=== PATIENT | female | born 1940 | race Caucasian/White ===

== ENCOUNTER → 2017-09-29 12:19 | Outpatient (CLI) | payer MEDICARE, OTHER, SELFPAY ==
--- NOTE | 2017-09-29 12:25 | BI_ITS ---
MAMMOGRAPHY - BILATERAL SCREENING REASON FOR EXAM: Female, 77 years old. Routine annual screening examination. PERTINENT HISTORY: Mother with breast cancer. Remote right excisional breast biopsy. TECHNIQUE: Digital bilateral breast shelli (3D mammographic acquisition) in the CC and MLO projections. 2-D mediolateral oblique (MLO) and craniocaudad (CC) views of both breasts were obtained. CAD: Full Field Digital Mammography with Computer Added Detection was performed. COMPARISON: Comparison is made with prior study dated August 31, 2015 and August 29, 2014. FINDINGS: Breast Composition: There are scattered areas of fibroglandular density. There are no dominant masses or suspicious calcifications. Stable vascular calcifications in the mid aspect of the right breast. No other significant abnormalities are identified. There has been no significant change since the prior study. BI/SCREENING MAMM (CAD), BILAT IMPRESSION: Stable bilateral screening mammogram. Yearly follow-up mammogram recommended. (A) ASSESSMENT CATEGORY: BIRADS Category 2: Benign. A letter regarding these results will be sent to the patient by the facility within 30 days. Approximately 10% of breast cancers are not detected by mammography. A normal mammogram should not delay biopsy of a clinically suspicious abnormality. [id number] Electronically Signed: Carlos Ocasio MD at 14:03 EDT Tel [phone], Service support ,
== END ==
PROVIDERS: PCP Family Medicine; Visit Provider Family Medicine
DX: Z12.31 Encounter for screening mammogram for malignant neoplasm of breast (principal)
CPT/HCPCS: 77063; 77067

== ENCOUNTER → 2017-10-27 11:07 | Outpatient (CLI) | payer MEDICARE, OTHER, SELFPAY ==
[2017-10-27 15:53] LABS: ALB/GLOB Ratio 0.8 RATIO (0.9-2.4); AST(SGOT) 20 U/L (15-37); Alanine Aminotransfer ALT/SGPT 24 U/L (13-56); Alkaline Phosphatase 112 U/L (45-117); Anion Gap 8 (5-15); BUN 18 mg/dL (7-18); Calcium,Total 8.6 mg/dL (8.5-10.1); Chloride 104 mmol/L (98-107); Cholesterol 246 mg/dL (200); Creatinine, Serum 0.67 mg/dL (0.55-1.02); EST Glomerular Filtration Rate 91 mL/min (>60); Est Glom Filt Rate - Afr Amer 110 mL/min (>60); Glucose 99 mg/dL (74-106); High Density Lipoprotein 39 mg/dL; Potassium 3.9 mmol/L (3.5-5.1); Sodium Level 141 mmol/L (136-145); Thyroid Stim Hormone (TSH) 0.85 uIU/mL (0.358-3.74); Triglycerides 231 mg/dL; Very Low Density Lipoprotein 46 mg/dL (5-40)
[2017-10-28 08:27] LABS: Vitamin D,25 Hydroxy 16.9 ng/mL (29.95-100.01)
== END ==
PROVIDERS: Family Provider Family Medicine; PCP Family Medicine; Visit Provider Family Medicine
DX: E78.00 Pure hypercholesterolemia, unspecified (principal); M79.1 Myalgia
CPT/HCPCS: 36415; 80053; 80061; 82306; 84443

== ENCOUNTER → 2018-11-18 14:45 | Outpatient (CLI) | payer MEDICARE, OTHER, SELFPAY ==
[2018-11-18 15:35] LABS: Hematocrit 42.3 % (37-47); Hemoglobin 13.7 g/dL (12.0-15.0); Mean Corp Hgb Conc 32.4 g/dL (32-36); Mean Corpuscular Hgb 28.7 pg (27.0-32.0); Mean Corpuscular Volume 88.5 fL (81-99); Mean Platelet Vol. 11.2 fl (6.2-12.0); Platelet Count 265 K/mm3 (150-450); RBC Distribution Width SD 44.9 fl (35.1-43.9); Red Blood Count 4.78 M/mm3 (4.2-5.4); White Blood Count 8.2 K/mm3 (4.4-11.0)
[2018-11-18 15:42] LABS: International Normalized Ratio 0.9; Prothrombin Time (Protime)PT. 12.2 SECONDS (11.7-14.9)
[2018-11-18 16:05] LABS: BUN 19 mg/dL (7-18); BUN/Creat Ratio 22.9 RATIO (10-20); Calcium,Total 9.2 mg/dL (8.5-10.1); Chloride 107 mmol/L (98-107); Creatinine, Serum 0.83 mg/dL (0.55-1.02); EST Glomerular Filtration Rate 71 mL/min (>60); Est Glom Filt Rate - Afr Amer 85 mL/min (>60); Glucose 120 mg/dL (74-106); Potassium 3.6 mmol/L (3.5-5.1); Sodium Level 139 mmol/L (136-145)
[2018-11-18 16:06] LABS: Anion Gap 6 (5-15)
== END ==
PROVIDERS: Family Provider Family Medicine; PCP Family Medicine; Referring Provider Family Medicine; Visit Provider Family Medicine
DX: Z01.818 Encounter for other preprocedural examination (principal)
CPT/HCPCS: 36415; 80048; 85027; 85610

== ENCOUNTER 2018-11-25 07:12 | Day surgery (SDC) | payer MEDICARE, OTHER, SELFPAY ==
--- NOTE | 2018-11-24 21:02 | PCM.HPOB.BLA ---
- Problem List (1) Postmenopausal bleeding Status: Acute History and Physical Date of Admission: 11/25/18 Magali Flannery, a 78 year old female 5 0 0 0 5, presented for: -- Pre-Op -- Magali is being seen for pre op visit on 11/23/18. Pt to have hysterscopy, d and c on 11-25-18 due to postmenopausal bleeding. ALLERGIES: NKDA MEDICATIONS HISTORY: Patient is also takin. Aspirin Low-Strength 81 mg tablet,chewable 2. atorvastatin 10 mg tablet, 1 PO QD 3. diclofenac potassium 50 mg tablet, 1 PO BID 4. losartan 50 mg tablet, 1 PO QD REVIEW OF SYSTEMS: GENERAL - Denies fever, or chills SKIN - Denies skin changes EYES - Denies visual changes EARS - Denies difficulty hearing NOSE - Denies nasal congestion or bleeding MOUTH - Denies sore throat or difficulty swallowing NECK - Denies pain or swelling RESPIRATORY - Denies shortness of breath or wheezing CARDIOVASCULAR - Denies palpitations or chest pain GASTROINTESTINAL - Denies nausea, vomiting, diarrhea, constipation GENITOURINARY - Denies dysuria, frequency of urination, incontinence of urine MUSCULOSKELETAL - Denies joint or muscle pain NEUROLOGICAL - Denies localized numbness or weakness PSYCHIATRIC - Denies depression or anxiety ENDOCRINE - Denies heat or cold intolerance, weight loss or gain HEMATO-IMMUNOLOGIC - Denies excesive bleeding with cuts SURGICAL HISTORY: 1. 12/05/1978 c section MENSTRUAL HISTORY: LMP Known?- postmenopausal FAMILY HISTORY: Father - Colon Cancer; Mother - Carcinoma of breast; Brother - Neoplasm of lung; SOCIAL HISTORY: Alcohol Use - denies drinking Smoking - denies smoking Diet - balanced Diet Lifestyle - moderate stress lifestyle Exercise - active Seat Belt Use - always Employer - retired Illicit Drug Use - denies use of street drugs Sexual Activity - Spouse-Sig Other Name - Devon Spouse-Sig Other Occupation - retired PHYSICAL EXAMINATION BP- 160/90 Sitting, Right arm, regular cuff Temp- 98.3 Taken Orally Weight- 176.60 lbs Height- 65.50 inch BMI:29.00 CONSTITUTIONAL - NAD, well nourished, and well developed SKIN - No rash, lesions, or ulcers HEENT - normocephalic, atraumatic, sclerae anicteric LUNGS - CTA x2 without wheezes, crackles or rales CARDIAC - Regular rate and rhythm without rubs, murmurs, or gallops ABDOMEN - Without hepatosplenomegaly, distention, masses, rebound, or guarding; normal bowel sounds; no hernias NEUROLOGICAL - normal gait, normal balance, normal motor PSYCHIATRIC - A and O to time, place, person, mood and affect ASSESSMENT: PLAN BY DIAGNOSIS: 1. Postmenopausal Bleeding Plan for hysteroscopy, dilation and curettage - procedure r/b/i/a reviewed. Pt agreeable to proceed with hysteroscopy after further discussion of risks. Prior US 2014 with 20mm cystic endometrium Consents signed and reviewed Pt given opportunity to ask questions and questions answered to her satisfaction. Cryoprecipitate is acceptable, NO WHOLE BLOOD OR PRBC OR FFP. NPO @ [facility] prior to procedure Preop labs reviewed and wnl
[2018-11-25 07:32] VITALS: BP 116/57; PULSE 71; RESP 16; TEMP 36.8; O2SAT 99; BMI 28.2
--- NOTE | 2018-11-25 08:55 | EMB_PTH ---
PATIENT: ADALGISA UPTON LOC: [facility] U#:[id number] AGE/SX: 78/F ROOM: RE11/25/[address]: Dr. Sujata Chahal MD : 1940 BED: DIS: 11/25/2018 SPEC #: [id number] RECD: 11/25/18 10:08 STATUS: REGULO SOPHIE #: [id number] JEAN CLAUDE: 11/25/18 08:[address]: Sujata Cordova DEPT: SURGICAL PATHOLOGY RECD BY: Sherif Love ENTERED: 11/25/18 12:21 SP TYPE: ENDOM BX/C OTHR DR: Dr. Glen Farah MD Tissues: Endometrium, NOS Procedures: Surgery Specimen Level IV HEADER OPERATION: Hysteroscopy, D & C, Symphion PRE-OP DIAGNOSIS: Postmenopausal bleeding TISSUE SUBMITTED: Endometrial curettings and polyp MICROSCOPIC DIAGNOSIS Endometrial curettings and polyp: Complex hyperplasia with focal atypia. See comment. SJ:red 11/26/18 COMMENT Focal single cell necrosis is also noted. Higher grade lesion cannot be entirely excluded. Clinical correlation and appropriate follow up are necessary. Please make reference to previous specimen ([id number]) endometrium, biopsy with diagnosis of rare strips of benign superficial endometrium and endocervix, mucus and inflammatory cells and ([id number]) endometrium, biopsy with diagnosis of rare strips of endocervix and endometrium. Case has been reviewed in consultation with Dr. Tadeo who concurs with the above diagnosis. IDC:AM MICROSCOPIC DESCRIPTION Slides are reviewed. GROSS DESCRIPTION Received in fixative is one container labeled with the patient's name and designated endometrial curettings and polyp. The specimen consists of multiple irregular fragments of solano-pink soft tissue mixed with a few blood clots that in aggregate measure 7.5 x 3 x 0.3 cm. The entire specimen is submitted in three cassettes. / WM:red 11/25/18 TC:5 CPT: 89679
--- NOTE | 2018-11-25 09:37 | PCM.OPRPT ---
Problem List (1) Postmenopausal bleeding Status: Acute Report of Operation Date of Procedure: 11/25/18 Pre-Operative Diagnosis: Postmenopausal bleeding Post-Operative Diagnosis: Postmenopausal bleeding, Endometrial polyp Surgery/Procedure Performed:: Hysteroscopic polypectomy and dilation and curettage Description of Surgical Findings:: Large endometrial polyp - approximately 2cm Endometrial calcifications and cloud like lining Type of Anesthesia:: Local MAC Anesthesiologist: David Zambrano Specimen's removed: endometrial curettings and polyp Drains: urine 60cc Estimated Blood Loss (mL): 5 Fluids Replaced: 600 ml Description of Procedure: Patient was taken to the operating room assignment was performed. She is placed in the dorsal supine position and induced under MAC. She is placed into dorsal lithotomy. The perineum was prepped and draped in sterile fashion. She was repositioned to high lithotomy and a weighted speculum space into the vagina. The cervix was grasped the anterior cervical lip using a single-tooth tenaculum. A paracervical block was placed for a total of 20 cc of 1% lidocaine. The uterus was sounded to 3-1/4 inches. The cervix was subsequently dilated and hysteroscopy performed demonstrating a large endometrial polyp and clublike fluffy lining. There appear to be calcifications. Tubal ostia were visualized with normal cavity shape. Manual resectoscopic polypectomy was performed. Sharp curettage was performed. Hysteroscopy was again performed demonstrating integrity of the uterine cavity. The procedure was complete. The hysteroscope was removed. The tenaculum and speculum were removed. The tenaculum site was hemostatic. The patient was placed in the dorsal supine position, awakened and transferred to the recovery room without complication. Sponge counts were correct x2. Patient tolerated the procedure well. Fluid deficit 500 cc - Complications None - Admit VTE Documentation VTE Present on Admission: No VTE Mechan Device Prophylaxis: SCD's VTE Pharm Prophylaxis ordered?: No
[2018-11-25 09:49] VITALS: BP 116/57; BP 131/69; O2SAT 98
--- NOTE | 2018-11-25 09:52 | DCINST_ITS ---
Discharge Diet: No Restrictions Discharge Activity: Return to Normal Activity, May Shower, - - May drive in 24 hours Call your doctor if you observe: Fever of 101 or Higher, Inability to urinate, Inability to have a bowel movement, Using more than one pad per hour, Shortness of breath, Chest pain, Calf discomfort, Uncontrolled pain Allergies/Adverse Reactions: Allergies No Known Allergies Allergy (Verified 11/22/18 08:47) Medications to take at Discharge Aspirin [Aspir 81] 81 mg PO DAILY 11/22/18 Atorvastatin Calcium [Lipitor] 10 mg PO QHS 11/22/18 Diclofenac [Voltaren] 50 mg PO BIDCM 11/22/18 Losartan Potassium [Cozaar] 50 mg PO DAILY 11/22/18 Omeprazole Magnesium [Prilosec Otc] 20 mg PO DAILY 11/22/18 Primary Care Physician: Nicholas Farah MD [Primary Care Provider] - Test Results: Test results from this visit will be discussed in further detail at your follow- up appointment, if applicable. Please Follow Up With: Sujata Raphael MD When: 1-2 weeks
[2018-11-25 09:55] VITALS: BP 116/57; BP 129/65; PULSE 59; RESP 16; O2SAT 93
[2018-11-25 10:00] VITALS: BP 116/57; BP 143/69; PULSE 58; RESP 16; O2SAT 93
[2018-11-25 10:03] VITALS: BP 116/57; BP 141/60; PULSE 55; RESP 16; TEMP 36; O2SAT 98
[2018-11-25 10:47] VITALS: BP 116/57
== END 2018-11-25 10:49 | disposition home or self-care (01) ==
LOC: SDC 07:14 → AC 07:14
PROVIDERS: Family Provider Family Medicine; PCP Family Medicine; Referring Provider Obstetrics & Gynecology; Visit Provider Obstetrics & Gynecology
PROC: (CPT 58558; principal; 2018-11-25 08:40)
DX: N95.0 Postmenopausal bleeding (principal); N85.01 Benign endometrial hyperplasia; I34.1 Nonrheumatic mitral (valve) prolapse; E78.00 Pure hypercholesterolemia, unspecified; M79.7 Fibromyalgia; K21.9 Gastro-esophageal reflux disease without esophagitis; Z79.82 Long term (current) use of aspirin; Z79.899 Other long term (current) drug therapy
CPT/HCPCS: 58558; 36415; 86850; 86900; 88305; J7120

== ENCOUNTER 2018-12-30 11:46 | Observation (INO) | payer MEDICARE, OTHER, SELFPAY ==
[2018-12-24 11:46] VITALS: BP 147/70; PULSE 63; RESP 18; TEMP 36.7; O2SAT 94; BMI 28.6
--- NOTE | 2018-12-29 07:04 | PCM.HPOB.BLA ---
- Problem List (1) Endometrial hyperplasia with atypia Status: Acute History and Physical Date of Admission: 12/30/18 Surgical History and Physical Date: 12/24/2018 Name: MAGALI FLANNERY Age: 78 Date of : 1940 Magali Flannery, a 78 year old female 5 0 0 0 5, presents for LAVH, BSO on December 30, 2018 at 8:45. -- She has postmenopausal bleeding. LAVH, BSO planned for complex EM hyperplasia with atypia confirmed on D&C specimen. Denies any increase in vaginal bleeding, it is intermittent. [facility] MEDICATIONS HISTORY: Patient is also takin. Aspirin Low-Strength 81 mg tablet,chewable 2. atorvastatin 10 mg tablet, 1 PO QD 3. diclofenac potassium 50 mg tablet, 1 PO BID 4. losartan 50 mg tablet, 1 PO QD ALLERGIES: NKDA Infections - Chicken pox, Mumps and Measles Illnesses - GERD, Arthritis, Fibromyalgia, Mitral Valve prolapse Accidents - None Hospitalizations - None Mitral valve prolapse; Review of Systems: GENERAL - Denies fever, or chills SKIN - Denies skin changes EYES - wears eye glasses EARS - Denies difficulty hearing NOSE - Denies nasal congestion or bleeding MOUTH - Denies sore throat or difficulty swallowing NECK - Denies pain or swelling RESPIRATORY - Denies shortness of breath or wheezing CARDIOVASCULAR - Denies palpitations or chest pain GASTROINTESTINAL - Denies nausea, vomiting, diarrhea, constipation GENITOURINARY - Denies dysuria, frequency of urination, incontinence of urine MUSCULOSKELETAL - Denies joint or muscle pain NEUROLOGICAL - Denies localized numbness or weakness PSYCHIATRIC - Denies depression or anxiety ENDOCRINE - Denies heat or cold intolerance, weight loss or gain HEMATO-IMMUNOLOGIC - Denies excessive bleeding with cuts SOCIAL HISTORY: Alcohol Use - denies drinking Smoking - denies smoking Diet - balanced Diet Lifestyle - moderate stress lifestyle Exercise - active Seat Belt Use - always Employer - retired Illicit Drug Use - denies use of street drugs Sexual Activity - Spouse-Sig Other Name - Devon Spouse-Sig Other Occupation - retired FAMILY HISTORY: Mother: Breast CA. Father: colon Ca. Brother: Lung CA- smoker. MENSTRUAL HISTORY: LMP Known?- postmenopausal PAST PREGNANCIES: Total Pregnancies - 5; Full Term Pregnancies - 5; Premature - 0; Abortions, Induced - 0; Abortions, Spontaneous - 0; Ectopics - 0; Multiple Births - 0; Living Children - 5 SURGICAL HISTORY: 1. 12/05/1978 c section ; - 2. 11/25/2018 hysteroscopy, D and C, polypectomy ; Sujata Chahal MD - PHYSICAL EXAM BP- 124/78 Sitting, Left arm, regular cuff Temp- 97.9 Taken Orally Weight- 177.16791 lbs Height- 65.5 inch BMI:29.07 CONSTITUTIONAL - NAD, well nourished, and well developed SKIN - No rash, lesions, or ulcers HEENT - normocephalic, atraumatic, sclerae anicteric LUNGS - normal respiratory rate and rhythm CARDIAC - Regular rate and rhythm without rubs, murmurs, or gallops ABDOMEN - Without hepatosplenomegaly, distention, masses, rebound, or guarding; normal bowel sounds; no hernias EXTREMITIES - No edema or calf tenderness NEUROLOGICAL - normal gait, normal balance, normal motor PSYCHIATRIC - A and O to time, place, person, mood and affect External Genitial Vagina - non-tender without lesions Urethra/Urethral Meatus - non-tender Bladder - non-tender Vagina - vaginal mathew are pink and moist without loss of rugae and no evidence of atropy, blood in vault from cervix Cervix - without cervical motion tenderness and has normal size and features without evident lesions Uterus - enlarged uterus 10 wks, wt 175-275 g Adnexa - clear without massess or tenderness ASSESSMENT/PLAN: 1. Endometrial Hyperplasia and Postmenopausal Bleeding Complex endometrial hyperplasia with atypia Discussed plan for LAVH, BSO - again reviewed how performed, anticipated 24h hospitalization and recovery including activity restrictions. Procedural r/b reviewed. Discussed progesterone therapy as alternative with anticipated resolution of atypical hyperplasia approximately 60-70%. Pt understands this will require monitoring and repeat biopsy. Hysterectomy may be required if no resolution. Pt desires to proceed with surgery. Plan for NPO @ [facility] prior to procedure Pt is Protestant - will not accept ANY blood products. Pt and son's questions answered to their satisfaction. 11/2018 labs reviewed and appropriate
[2018-12-30] VITALS (10 sets, daily range): BP systolic 109–153; BP diastolic 48–83; PULSE 48–92; RESP 16–18; TEMP 36.1–37.1; O2SAT 92–100; BMI 28.6; BMI 29.2
[2018-12-30] MEDS: Lactated Ringers 1,000 ML 125 ML IV ×3 (07:29→16:01)
--- NOTE | 2018-12-30 08:50 | HYST_PTH ---
PATIENT: ADALGISA UPTON LOC: [facility] U#:[id number] AGE/SX: 78/F ROOM: MS317 RE12/30/[address]: Dr. Sujata Chahal MD : 1940 BED: 1 DIS: 12/31/2018 SPEC #: [id number] RECD: 12/30/18 14:46 STATUS: REGULO REVanessa #: [id number] JEAN CLAUDE: 12/30/18 08:[address]: Sujata Cordova DEPT: SURGICAL PATHOLOGY RECD BY: Sherif Love ENTERED: 12/31/18 08:30 SP TYPE: HYSTERECT OTHR DR: Dr. Glen Farah MD Tissues: Uterus, NOS Procedures: Surgery Specimen Level V HEADER OPERATION: Lap-assisted vaginal hysterectomy, BSO PRE-OP DIAGNOSIS: Complex endometrial hyperplasia TISSUE SUBMITTED: Uterus, tubes, ovaries MICROSCOPIC DIAGNOSIS Uterus, hysterectomy: Cervix - nabothian cysts and minimal chronic inflammation. Endometrium - Extensive simple and complex hyperplasia with multifocal atypia. Mild chronic endometritis. Myometrium - adenomyosis. Right ovary - serous cystadenofibroma, multiloculated. Right fallopian tube - no pathologic change. Left fallopian tube - no pathologic change. Left ovary - serous cystadenofibroma, multiloculated and with focal calcific change. AM:red 01/05/19 COMMENT Case has been reviewed in consultation with Dr. Hernandez who concurs with the above diagnosis. IDC:WM MICROSCOPIC DESCRIPTION Slides are reviewed. GROSS DESCRIPTION Received in fixative is one container labeled with the patient's name and designated uterus. The specimen consists of a previously opened uterus with attached cervix, right and left fallopian tubes and ovaries. The uterus with cervix measures 11 x 8 x 5.5 cm and weighs 117 gm. The endocervical canal measures 3.6 cm in length and is grossly unremarkable. The triangular endometrial cavity measures 3.5 x 3 cm. The endometrium is white-solano and varies in thickness from 0.2 to 0.4 cm. The myometrium measures 2.5 cm in average thickness and is free of mass lesions. The right ovary is solano-white and has a smooth external surface and measures 3 x 2 x 1.2 cm and contains a smooth, glistening cyst containing clear fluid. The cyst measures 1 cm in greatest dimension. Two similar cysts are present within the parenchyma of the ovary ranging in size from 0.5 to 1 cm and also contain clear fluid. The adjacent fallopian tube measures 5.5 cm in length and 0.4 cm in average diameter. No tubo-ovarian adhesions are identified. The left ovary is similar in appearance to the right ovary and measures 3 x 1.6 x 1 cm and contains a smooth, glistening cyst containing clear fluid. The ovary measures 1.2 cm in greatest dimension. The parenchyma of the ovary contains a firm, li area measuring 0.8 x 0.7 cm surrounded by a cyst measuring 2 cm in greatest dimension and containing clear fluid. The adjacent left fallopian tube measures 7 cm in length and 0.5 cm in average diameter. No tubo-ovarian adhesions are identified. Traveling Buyer sections are submitted in 31 cassettes as follows: 1 - anterior cervix, 2 - posterior cervix, 3 - anterior uterine wall, full thickness, 4-14 anterior endometrium and adjacent myometrium, 15??posterior myometrium wall, full thickness, 16-26 - posterior endometrium with adjacent myometrium, 27 & 28 - right ovary and fallopian tube, 29 & 30 - left ovary, totally submitted, 31 - left fallopian tube. Note, cassette 30 is submitted after appropriate decalcification. / AM:red 12/31/18 TC:1 CPT: 64209,[id number]
[2018-12-30] MEDS: Vasopressin 20 UNITS/ML Vial (09:31)
[2018-12-30] MEDS: Bupivacaine Mpf 0.5% 30 ML VIAL (11:45)
--- NOTE | 2018-12-30 11:51 | OP.PCM_ITS ---
Problem List (1) Endometrial hyperplasia with atypia Status: Acute Report of Operation Date of Procedure: 12/30/18 Pre-Operative Diagnosis: Complex endometrial hyperplasia with atypia Post-Operative Diagnosis: Complex endometrial hyperplasia with atypia Surgery/Procedure Performed:: Laparoscopic assisted vaginal hysterectomy, bilateral salpingo-oophorectomy Description of Surgical Findings:: enlarged uterus - 10w size, normal tubes and ovaries lining cleaner: Eliceo Wilde Type of Anesthesia:: General, Local Anesthesiologist: Tomas Claudio bethany - CRNA Special Medications: Vasopressin. Surgicel Powder Specimen's removed: uterus, cervix, tubes and ovaries Drains: 450 ml urine Estimated Blood Loss (mL): 80 Fluids Replaced: 1300 Description of Procedure: Patient was taken to the operating room and signed and was performed. She is placed in the dorsal supine position and induced under general anesthesia. Her arms were tucked at her sides and placed into dorsal lithotomy. An examination under anesthesia was performed. Perineum and abdomen were prepped and draped in sterile fashion. She was then placed in the high lithotomy. A Schrader catheter was placed weighted speculum was placed into the vagina and a Rollins tenaculum used to grasp the anterior cervical lip. 10 cc of vasopressin solution 20 units in the 100 mL was injected within the cervix. A Tan uterine cannula was placed for uterine manipulation and secured to the tenaculum. The patient was then placed into low lithotomy attention turned to the abdomen. A infraumbilical incision was made using the scalpel and 6 varies needle was placed with successful hanging drop test and no aspirate. The abdomen was insufflated to 15 mmHg. The Veress needle was removed and 5 mm trocar placed under lap scopic guidance confirming atraumatic entry into the abdominal cavity. The lumen was inspected and normal appearance. The patient was placed into reverse Trendelenburg. A tap block was placed in the right and left lower quadrants and suprapubically using Marcaine under laparoscopic guidance. Using transillumination incisions were made in the right and left lower quadrants and suprapubically, 5 mm ports were placed. The uterus was elevated the tubes and ovaries were normal in appearance. The left tibial pelvic ligament was isolated, coagulated and transected using the Enseal device. The mesovarium and mesosalpinx were transected to the level of the uterine cornua. The left round ligament was isolated, coagulated and cut also using the Enseal device. The anterior broad ligament was opened and dissected with skeletonization of the uterine vessels. The left bladder flap was created using sharp dissection. In similar fashion the right infundibular pelvic ligament was coagulated and transected as well as the right round ligament. The broad ligament was opened, the uterine vessels skeletonized and the bladder flap was completed. The uterine arteries were coagulated bilaterally using the Enseal. The abdomen was desufflated and attention then turned to the perineum. The patient was placed in the high lithotomy and the con cannula was removed. A circumferential incision was made around the apical cervix. Posterior column lithotomy was performed using the Metzenbaum scissors allowing entry into the posterior cul-de-sac. The starter R Bard weighted speculum was placed. The cervical vaginal tissue was dissected to open up the vesicle vaginal space. The left then right uterosacral ligaments were Jus clamped, cut and suture ligated using 0 Vicryl suture. 0 Vicryl was used for all sutures unless otherwise stated. In similar fashion the cardinal ligaments with uterine vessels were clamped, cut and suture-ligated. The uterus, lateral tubes and ovaries delivered en bloc. The posterior cul-de-sac peritoneum was referred to the posterior cuff due to bleeding. A modified Liz culdoplasty was performed. The vaginal cuff was reapproximated using serial figure of 8 sutures. There is good hemostasis. The patient was placed into low lithotomy attention again turned to the abdomen. The abdomen was insufflated and laparoscopy again performed. There did appear to be some bleeding from the right infundibulopelvic ligament. Bleeding was improved following coagulation with the Enseal. Surgicel powder was placed at this site for additional hemostasis with hemostasis obtained. The procedure was complete. The laparoscope was removed and the abdomen desufflated. Trochars were removed. The skin was closed using 4-0 Monocryl. Steri-Strips and OpSite dressing were placed over the incisions. A total of 20 cc of percent Marcaine were placed incisional sites. Sponge, instrument and needle counts were correct x2. The patient tolerated the procedure well. Was awakened, extubated and transferred to the recovery room without complication. - Complications None - Admit VTE Documentation VTE Present on Admission: No VTE Mechan Device Prophylaxis: SCD's VTE Pharm Prophylaxis ordered?: Yes
[2018-12-30] MEDS: Ondansetron 4 MG/2 ML Vial IV (14:17)
[2018-12-30] MEDS: Heparin Injection (Vial) 5,000 UNIT/ML VIAL 5000 UNIT SC ×2 (14:17→21:36)
[2018-12-30] MEDS: 0.9% NaCl Peripheral Flush Adult/Peds IV (16:02)
--- NOTE | 2018-12-30 18:30 | PCM.PN.OB ---
Subjective: Has mild lower abdominal pain. No flatus yet. OOB. Had dizziness with scopolamine patch earlier today. Dizziness resolved with patch removal. No chest pain or shortness of breath. Denies vaginal bleeding. Has decreased appetitie, but tolerates pudding and beverage. Objective: AVSS - Physical Exam General: Alert, Oriented x3, Cooperative, No apparent distress HEENT: Atraumatic, Normocephalic Lungs: Clear to auscultation, Normal air movement Cardiovascular: Regular rate, Regular Rhythm, Normal S1, Normal S2 Abdomen: Bowel Sounds Present, Soft, Non Tender, Non-Distended Extremities: No edema, No Calf Tenderness Neurological: Neuro grossly intact Psych/Mental Status: Normal Affect, Appropriate, Alert and oriented to time, place, person, mood and affect Vital Signs Temp Pulse Resp BP Pulse Ox 98.7 F 88 18 153/83 H 98 12/30/18 17:32 12/30/18 17:32 12/30/18 17:32 12/30/18 17:32 12/30/18 17:32 Oxygen Flow Rate (L/min) 2 Oxygen Delivery Method Room Air Weight: 82.1 kg Body Mass Index (BMI) 29.2 Intake and Output for Last 24 Hours 12/28/18 12/29/18 12/30/18 23:59 23:59 23:59 Intake Total 2546.92 / 2546.92 Output Total 750 / 750 Balance 1796.92 / 1796.92 Medical Necessity - Tobacco Use Smoking Status: Never smoker Tobacco Use: Non-smoker Assessment/Plan All Active Problems Postmenopausal bleeding (Acute) Endometrial hyperplasia with atypia (Acute) 78yo s/p LVH, BSO for complex atypical endometrial hyperplasia doing well. -Pain control prn -No void yet, will replace lopez if no void by 7pm -CLD, advance as tolerated -Routine postop care
[2018-12-30] MEDS: Atorvastatin Calcium 10 MG Tablet PO (21:36)
[2018-12-31] MEDS: Lactated Ringers 1,000 ML 125 ML IV (00:41)
[2018-12-31 01:02] VITALS: BP 108/71; PULSE 92; RESP 18; TEMP 36.9; O2SAT 95
[2018-12-31 05:49] VITALS: BP 116/58; PULSE 78; RESP 16; TEMP 37.2; O2SAT 95
[2018-12-31] MEDS: Heparin Injection (Vial) 5,000 UNIT/ML VIAL 5000 UNIT SC (05:53)
[2018-12-31 06:24] LABS: Hematocrit 34.3 % (37-47); Hemoglobin 11.3 g/dL (12.0-15.0); Mean Corp Hgb Conc 32.9 g/dL (32-36); Mean Corpuscular Hgb 29.3 pg (27.0-32.0); Mean Corpuscular Volume 88.9 fL (81-99); Mean Platelet Vol. 10.6 fl (6.2-12.0); Platelet Count 207 K/mm3 (150-450); RBC Distribution Width CV 13.7 % (11.6-14.6); RBC Distribution Width SD 44.6 fl (35.1-43.9); Red Blood Count 3.86 M/mm3 (4.2-5.4); White Blood Count 13.5 K/mm3 (4.4-11.0)
[2018-12-31 06:38] VITALS: O2SAT 93
[2018-12-31 06:50] LABS: Creatinine, Serum 0.83 mg/dL (0.55-1.02); EST Glomerular Filtration Rate 71 mL/min (>60); Est Glom Filt Rate - Afr Amer 86 mL/min (>60); Estimated Creatinine Clearance 52.29 ml/min
[2018-12-31 08:21] VITALS: BP 120/63; PULSE 70; RESP 16; TEMP 36.4; O2SAT 95
[2018-12-31] MEDS: Aspirin E.C. 81 MG Tablet PO (08:25)
[2018-12-31] MEDS: Pantoprazole Sodium 20 MG Tablet PO (08:25)
--- NOTE | 2018-12-31 08:40 | DCINST_ITS ---
Discharge Diet: No Restrictions Discharge Activity: Return to Normal Activity, May not drive while taking narcotic pain medications., May Shower, - - No tub bath x 2 weeks May resume sexual activity in: 6 weeks Lifting Restrictions: 10 lb Call your doctor if your incision/area has: Continuous Slow Oozing, Sudden Increased Bleeding, Increased Pain/ Swelling, Increased Redness Call your doctor if you observe: Fever of 101 or Higher, Inability to urinate, Inability to have a bowel movement, Using more than one pad per hour, Shortness of breath, Chest pain, Calf discomfort, Uncontrolled pain Suture Line Care: Avoid Pulling/Pushing Remove Dressing in (days):: 0 - this afternoon - remove tape strips on Thursday Cleanse incision/area with: Soap & Water Allergies/Adverse Reactions: Allergies No Known Allergies Allergy (Verified 11/22/18 08:47) Medications to take at Discharge Aspirin [Aspir 81] 81 mg PO DAILY 11/22/18 Atorvastatin Calcium [Lipitor] 10 mg PO QHS 11/22/18 Diclofenac [Voltaren] 50 mg PO BIDCM 11/22/18 Losartan Potassium [Cozaar] 50 mg PO DAILY 11/22/18 Omeprazole Magnesium [Prilosec Otc] 20 mg PO DAILY 11/22/18 Oxycodone [Oxyir] 1 tab PO Q6H PRN 7 Days #5 tablet 12/31/18 The following prescriptions were given: Oxycodone [Oxyir] 1 tab PO Q6H PRN 7 Days #5 tablet PRN Reason: Mod-Severe Pain (4-01/27) Transmission Status: Sent to [facility] Primary Care Physician: Nicholas Farah MD [Primary Care Provider] - Test Results: Test results from this visit will be discussed in further detail at your follow- up appointment, if applicable. Please Follow Up With: Sujata Raphael MD When: 1-2 weeks
--- NOTE | 2018-12-31 08:42 | PCM.PN.OB ---
Subjective: No issues overnight. Passing flatus. No nausea or vomiting. OOB and ambulating. Denies chest pain or shortness of breath. No vaginal bleeding. Pain well controlled with home doses Diclofenac. Voided without difficulty. Objective: AVSS - Physical Exam General: Alert, Oriented x3, Cooperative, No apparent distress HEENT: Atraumatic, Normocephalic Lungs: Clear to auscultation, Normal air movement Cardiovascular: Regular rate, Regular Rhythm, Normal S1, Normal S2 Abdomen: Bowel Sounds Present, Soft, Non Tender, Non-Distended, - - incisional dressings c/d/i Extremities: No edema, No Calf Tenderness Neurological: Neuro grossly intact Psych/Mental Status: Normal Affect, Appropriate, Alert and oriented to time, place, person, mood and affect Vital Signs Temp Pulse Resp BP Pulse Ox 97.6 F L 70 16 120/63 95 12/31/18 08:21 12/31/18 08:21 12/31/18 08:21 12/31/18 08:21 12/31/18 08:21 Oxygen Flow Rate (L/min) 2 Oxygen Delivery Method Room Air Weight: 82.1 kg Body Mass Index (BMI) 29.2 Intake and Output for Last 24 Hours 12/29/18 12/30/18 12/31/18 23:59 23:59 23:59 Intake Total 3294.84 / 3294.84 1654.16 / 1654.16 Output Total 750 / 750 300 / 300 Balance 2544.84 / 2544.84 1354.16 / 1354.16 Laboratory Tests Past 24 Hrs 12/31/18 12/31/18 06:11 06:11 WBC 13.5 H RBC 3.86 L Hgb 11.3 L Hct 34.3 L MCV 88.9 MCH 29.3 MCHC 32.9 RDW Std Deviation 44.6 H RDW Coeff of Winston 13.7 Plt Count 207 MPV 10.6 Creatinine 0.83 Estim Creat Clear Calc 52.29 Est GFR (MDRD) Af Amer 86 Est GFR (MDRD) Non-Af 71 Medical Necessity - Tobacco Use Smoking Status: Never smoker Tobacco Use: Non-smoker Assessment/Plan All Active Problems Postmenopausal bleeding (Acute) Endometrial hyperplasia with atypia (Acute) 78yo POD#1 s/p LAVH, BSO for complex atypical endometrial hyperplasia/EIN doing well. -Pain control prn -Regular diet -Routine postop care -d/c home today
== END 2018-12-31 10:38 | disposition home or self-care (01) ==
LOC: MS3 12:26 → SDC 12:26
PROVIDERS: Admitting Provider Obstetrics & Gynecology; Family Provider Family Medicine; PCP Family Medicine; Referring Provider Obstetrics & Gynecology; Visit Provider Obstetrics & Gynecology
PROC: 0UT9FZZ Resection of Uterus, Via Natural or Artificial Opening With Percutaneous Endoscopic Assistance (ICD-10-PCS; CPT 58552; principal; 2018-12-30 08:25)
DX: N85.02 Endometrial intraepithelial neoplasia [EIN] (principal); D27.1 Benign neoplasm of left ovary; K21.9 Gastro-esophageal reflux disease without esophagitis; I10 Essential (primary) hypertension; Z79.899 Other long term (current) drug therapy; Z79.82 Long term (current) use of aspirin; N95.0 Postmenopausal bleeding
CPT/HCPCS: 58552; 36415; 82565; 85027; 86900; 86901; 88307; 96361; 96365; 96372; 96375; 99218; J7120; A4216; C1760; G0378; G0379; J2405

== ENCOUNTER → 2019-02-14 12:43 | Outpatient (CLI) | payer MEDICARE, OTHER, SELFPAY ==
[2018-12-30 13:32] VITALS: BMI 29.2
[2019-02-14 14:08] LABS: Erythrocyte Sedimentation Rate 56 mm/hr (0-30)
[2019-02-14 14:10] LABS: Absolute Lymphocyte Count 1.71 X10^3/uL (0.83-4.51); Absolute Neutrophil Count 8.3 X10^3/uL (2.0-7.7); Basophil# 0.02 X10^3/uL; Basophil% 0.2 % (0-1); Eosinophil# 0.14 X10^3/uL; Eosinophils% 1.3 % (0-5); Hematocrit 36.6 % (37-47); Lymphocyte # 1.71 X10^3/ul (4.0); Lymphocyte % 15.9 % (19-41); Mean Corp Hgb Conc 32.8 g/dL (32-36); Mean Corpuscular Volume 88.4 fL (81-99); Mean Platelet Vol. 11.4 fl (6.2-12.0); Monocyte# 0.53 X10^3/uL; Monocyte% 4.9 % (0-10); NRBC Flagged by Analyzer 0 % (0-5); Neutrophil # 8.31 X10^3/uL (2.7-7.7); Neutrophil % 77.4 % (47-70); Platelet Count 268 K/mm3 (150-450); RBC Distribution Width CV 13.4 % (11.6-14.6); RBC Distribution Width SD 43.8 fl (35.1-43.9); Red Blood Count 4.14 M/mm3 (4.2-5.4); White Blood Count 10.7 K/mm3 (4.4-11.0)
[2019-02-14 14:22] LABS: Vitamin B12 304 pg/mL (211-911); Vitamin D,25 Hydroxy 19.7 ng/mL (29.95-100.01)
[2019-02-14 14:27] LABS: ALB/GLOB Ratio 0.6 RATIO (0.9-2.4); AST(SGOT) 13 U/L (15-37); Alanine Aminotransfer ALT/SGPT 16 U/L (13-56); Albumin, Serum 2.7 g/dL (3.2-5.0); Alkaline Phosphatase 152 U/L (45-117); Anion Gap 8 (5-15); BUN 18 mg/dL (7-18); Calcium,Total 8.7 mg/dL (8.5-10.1); Chloride 105 mmol/L (98-107); Creatinine, Serum 0.95 mg/dL (0.55-1.02); EST Glomerular Filtration Rate 61 mL/min (>60); Est Glom Filt Rate - Afr Amer 73 mL/min (>60); Globulin 4.7 g/dL (2.2-4.2); Glucose 105 mg/dL (74-106); Iron 29 ug/dL (50-170); Potassium 3.5 mmol/L (3.5-5.1); Protein, Total 7.4 g/dL (6.4-8.2); Sodium Level 140 mmol/L (136-145); Thyroid Stim Hormone (TSH) 0.79 uIU/mL (0.358-3.74)
== END ==
PROVIDERS: Family Provider Family Medicine; PCP Family Medicine; Referring Provider Family Medicine; Visit Provider Family Medicine
DX: R10.9 Unspecified abdominal pain (principal); R50.9 Fever, unspecified; R53.83 Other fatigue; N95.0 Postmenopausal bleeding
CPT/HCPCS: 36415; 80053; 82306; 82607; 83540; 84443; 85025; 85652; 87086; 87088

== ENCOUNTER → 2019-06-10 12:40 | Outpatient (CLI) | payer MEDICARE, OTHER, SELFPAY ==
[2018-12-30 13:32] VITALS: BMI 29.2
--- NOTE | 2019-06-10 12:44 | BI_ITS ---
MAMMOGRAPHY - BILATERAL SCREENING REASON FOR EXAM: Female, 79 years old. Routine annual screening examination. PERTINENT HISTORY: Remote right excisional breast biopsy. Mother with breast cancer. TECHNIQUE: Digital bilateral breast cesar (3D mammographic acquisition) in the CC and MLO projections. 2-D mediolateral oblique (MLO) and craniocaudad (CC) views of both breasts were obtained. CAD: Full Field Digital Mammography with Computer Added Detection was performed. COMPARISON: Comparison is made with prior study dated September 29, 2017 and August 31, 2015. FINDINGS: Breast Composition: There are scattered areas of fibroglandular density. There are no dominant masses or suspicious calcifications. No other significant abnormalities are identified. There has been no significant change since the prior study. BI/SCREEN MAMM (CAD) W/CESAR BILAT IMPRESSION: Stable bilateral screening mammogram. Yearly follow-up mammogram recommended. (A) ASSESSMENT CATEGORY: BIRADS Category 1: Negative. A letter regarding these results will be sent to the patient by the facility within 30 days. Approximately 10% of breast cancers are not detected by mammography. A normal mammogram should not delay biopsy of a clinically suspicious abnormality. [id number] Electronically Signed: Carlos Ocasio, at 13:34 EST , Service support ,
== END ==
PROVIDERS: PCP Family Medicine; Referring Provider Family Medicine; Visit Provider Family Medicine
DX: Z12.31 Encounter for screening mammogram for malignant neoplasm of breast (principal); Z80.3 Family history of malignant neoplasm of breast
CPT/HCPCS: 77063; 77067

== ENCOUNTER → 2020-05-29 08:09 | Outpatient (REF) | payer MEDICARE, OTHER, SELFPAY ==
[2018-12-30 13:32] VITALS: BMI 29.2
[2020-05-29 09:32] LABS: Hematocrit 41.2 % (37-47); Hemoglobin 13.2 g/dL (12.0-15.0); Mean Corpuscular Hgb 29.7 pg (27.0-32.0); Mean Corpuscular Volume 92.8 fL (81-99); Mean Platelet Vol. 10.9 fl (6.2-12.0); Platelet Count 226 K/mm3 (150-450); RBC Distribution Width CV 14.3 % (11.6-14.6); RBC Distribution Width SD 48.5 fl (35.1-43.9); Red Blood Count 4.44 M/mm3 (4.2-5.4); White Blood Count 8.7 K/mm3 (4.4-11.0)
[2020-05-29 09:57] LABS: ALB/GLOB Ratio 0.8 RATIO (0.9-2.4); AST(SGOT) 17 U/L (15-37); Alanine Aminotransfer ALT/SGPT 32 U/L (13-56); Alkaline Phosphatase 152 U/L (45-117); Anion Gap 1 (5-15); BUN 25 mg/dL (7-18); BUN/Creat Ratio 28.9 RATIO (10-20); Calcium,Total 8.7 mg/dL (8.5-10.1); Chloride 110 mmol/L (98-107); Cholesterol 154 mg/dL (200); Creatinine, Serum 0.87 mg/dL (0.55-1.02); EST Glomerular Filtration Rate 67 mL/min (>60); Est Glom Filt Rate - Afr Amer 81 mL/min (>60); Globulin 3.9 g/dL (2.2-4.2); Glucose 107 mg/dL (74-106); High Density Lipoprotein 42 mg/dL; Protein, Total 6.9 g/dL (6.4-8.2); Sodium Level 141 mmol/L (136-145); Triglycerides 190 mg/dL; Very Low Density Lipoprotein 38 mg/dL (5-40)
[2020-05-29 10:00] LABS: Vitamin B12 385 pg/mL (211-911)
== END ==
LOC: LAB 08:09
PROVIDERS: PCP Family Medicine; Referring Provider Family Medicine; Visit Provider Family Medicine
DX: E78.00 Pure hypercholesterolemia, unspecified (principal); E55.9 Vitamin D deficiency, unspecified; E53.8 Deficiency of other specified B group vitamins
CPT/HCPCS: 36415; 80053; 80061; 82306; 82607; 85027

== ENCOUNTER 2020-06-28 09:21 | Outpatient (RCR) | payer MEDICARE, OTHER, SELFPAY ==
[2018-12-30 13:32] VITALS: BMI 29.2
[2020-06-28] MEDS: COVID-19 VACC, MRNA(PFIZER)/PF 30 MCG/0.3 ML SYRINGE IM (15:18)
[2020-07-19] MEDS: COVID-19 VACC, MRNA(PFIZER)/PF 30 MCG/0.3 ML SYRINGE IM (15:07)
== END 2020-09-25 23:59 ==
LOC: IMMUN 09:21
PROVIDERS: PCP Family Medicine; Referring Provider Family Medicine; Visit Provider Family Medicine
DX: Z23 Encounter for immunization (principal)
CPT/HCPCS: 0001A; 0002A; 91300

== ENCOUNTER → 2021-01-23 10:33 | Outpatient (CLI) | payer MEDICARE, OTHER, SELFPAY ==
--- NOTE | 2021-01-23 10:38 | BI_ITS ---
MAMMOGRAPHY - BILATERAL SCREENING 3-D TOMOSYNTHESIS REASON FOR EXAM: Female, 80 years old. SCREENING PERTINENT HISTORY: No significant family history. TECHNIQUE: 2-D mammograms and 3-D Tomosynthesis of the breast (s) were performed. CAD was performed. COMPARISON: 06/10/2019 FINDINGS: The breast composition is composed of scattered fibroglandular density. Scattered benign calcifications are seen. No dense spiculated masses or suspicious microcalcifications are identified. No architectural distortion is identified. There is no skin thickening or retraction. There has been no significant change since the prior study. BI/SCRN MAMM (CAD)W/CESAR BILAT IMPRESSION: No mammographic signs of malignancy. Routine yearly mammograms recommended. ASSESSMENT CATEGORY: BIRADS Category 1: Negative. A letter regarding these results will be sent to the patient by the facility within 30 days. FOLLOW UP RECOMMENDATION: Yearly follow up mammogram recommended. (A) Approximately 10% of breast cancers are not detected by mammography. A normal mammogram should not delay biopsy of a clinically suspicious abnormality. Electronically Signed: Severo Carlton MD at 13:35 EDT Tel , Service support ,
== END ==
PROVIDERS: PCP Family Medicine; Referring Provider Family Medicine; Visit Provider Family Medicine
DX: Z12.31 Encounter for screening mammogram for malignant neoplasm of breast (principal)
CPT/HCPCS: 77063; 77067

== ENCOUNTER → 2022-02-27 | Outpatient (CLI) | payer MEDICARE, OTHER, SELFPAY ==
--- NOTE | 2022-02-27 09:45 | BI_ITS ---
MAMMOGRAPHY - BILATERAL SCREENING REASON FOR EXAM: Female, 81 years old. Routine annual screening examination. PERTINENT HISTORY: Mother with breast cancer. Remote right excisional breast biopsy and mastoiditis. TECHNIQUE: Digital bilateral breast cesar (3D mammographic acquisition) in the CC and MLO projections. 2-D mediolateral oblique (MLO) and craniocaudad (CC) views of both breasts were obtained. CAD: Full Field Digital Mammography with Computer Added Detection was performed. COMPARISON: Comparison is made with prior examination dated 01/23/2021 and 06/10/2019. FINDINGS: Breast Composition: There are scattered areas of fibroglandular density. There are no dominant masses or suspicious calcifications. No other significant abnormalities are identified. There has been no significant change since the prior study. BI/SCRN MAMM (CAD)W/CESAR BILAT IMPRESSION: Stable bilateral screening mammogram. Yearly follow-up mammogram recommended. (A) ASSESSMENT CATEGORY: BIRADS Category 1: Negative. A letter regarding these results will be sent to the patient by the facility within 30 days. Approximately 10% of breast cancers are not detected by mammography. A normal mammogram should not delay biopsy of a clinically suspicious abnormality. [id number] Electronically Signed: Carlos Ocasio MD at 11:00 EST ,
== END | disposition home or self-care (01) ==
LOC: OPBI 09:43
PROVIDERS: PCP Family Medicine; Visit Provider Family Medicine
DX: Z12.31 Encounter for screening mammogram for malignant neoplasm of breast (principal); Z80.3 Family history of malignant neoplasm of breast; Z92.89 Personal history of other medical treatment
CPT/HCPCS: 77063; 77067

== ENCOUNTER → 2022-04-18 | Outpatient (CLI) | payer MEDICARE, OTHER, SELFPAY ==
[2022-04-18 10:25] LABS: Hematocrit 43.9 % (37-47); Hemoglobin 14.1 g/dL (12.0-15.0); Mean Corp Hgb Conc 32.1 g/dL (32-36); Mean Corpuscular Hgb 29.2 pg (27.0-32.0); Mean Corpuscular Volume 90.9 fL (81-99); Mean Platelet Vol. 11.5 fl (6.2-12.0); Platelet Count 249 K/mm3 (150-450); RBC Distribution Width CV 13.9 % (11.6-14.6); RBC Distribution Width SD 46.7 fl (35.1-43.9); Red Blood Count 4.83 M/mm3 (4.2-5.4); White Blood Count 8.5 K/mm3 (4.4-11.0)
[2022-04-18 10:38] LABS: Vitamin B12 489 pg/mL (211-911); Vitamin D,25 Hydroxy 19.4 ng/mL
[2022-04-18 10:47] LABS: Anion Gap 5 (5-15); BUN 31 mg/dL (7-18); BUN/Creat Ratio 42.1 RATIO (10-20); Calcium,Total 9.1 mg/dL (8.5-10.1); Chloride 106 mmol/L (98-107); Cholesterol 195 mg/dL (200); Creatinine, Serum 0.74 mg/dL (0.55-1.02); EST Glomerular Filtration Rate 80 mL/min (>60); Est Glom Filt Rate - Afr Amer 97 mL/min (>60); Glucose 110 mg/dL (74-106); High Density Lipoprotein 43 mg/dL; Potassium 3.9 mmol/L (3.5-5.1); Sodium Level 141 mmol/L (136-145); Thyroid Stim Hormone (TSH) 1.65 uIU/mL (0.358-3.74); Triglycerides 327 mg/dL; Very Low Density Lipoprotein 65 mg/dL (5-40)
== END | disposition home or self-care (01) ==
LOC: MFPLAB 08:21
PROVIDERS: PCP Family Medicine; Referring Provider Family Medicine; Visit Provider Family Medicine
DX: M81.0 Age-related osteoporosis without current pathological fracture (principal); E55.9 Vitamin D deficiency, unspecified; I10 Essential (primary) hypertension; E53.8 Deficiency of other specified B group vitamins
CPT/HCPCS: 36415; 80048; 80061; 82306; 82607; 84443; 85027

== ENCOUNTER → 2022-10-31 | Outpatient (CLI) | payer MEDICARE, OTHER, SELFPAY ==
--- NOTE | 2022-10-31 12:54 | ART_ITS ---
Reason For Study: PVD Procedure A bilateral lower extremity continuous wave Doppler with analog waveform analysis,segmental pressures,and ankle brachial indexes with exercise. Left Segmental Pressures Left brachial= 164mmHg. Left posterior tibial artery = 171mmHg. Left dorsalis pedis artery = 161mmHg. Left digit = 121 mmHg. The left dorsalis pedis waveforms are triphasic. The left posterior tibial artery waveforms are triphasic. Right Segmental Pressures Right brachial= 166mmHg. Right posterior tibial artery = 173mmHg. Right dorsalis pedis artery = 167mmHg. Right digit = 121 mmHg. The right dorsalis pedis waveforms are triphasic. The right posterior tibial artery waveforms are triphasic. Indices The right ankle brachial index by the dorsalis pedis is 1.01. The right ankle brachial index by the posterior tibial artery is 1.04. The right digital-brachial index is 0.73. The left ankle brachial index by the dorsalis pedis is 0.97. The left ankle brachial index by the posterior tibial artery is 1.03. The left digital-brachial index is 0.73. VL/Lower Ext Art Exam w/ Exercise Interpretation Summary Normal resting right ankle-brachial indices with her dorsalis pedis and posteri or tibialis of 1.01 and 1.04 respectively with normal triphasic Doppler waveforms. Normal right lower extremity exercise response. Left lower extremity resting ankle-brachial index for the dorsalis pedis and po sterior tibialis of 0.97 and 1.03 respectively. Normal triphasic Doppler waveforms for both the pos terior tibialis and dorsalis pedis. Normal left lower extremity exercise response Ordering Physician: Gordon Pierre Referring Physician: Glen Farah MD Performed By: Emily Kerr RVT
== END | disposition home or self-care (01) ==
LOC: CVS 12:49
PROVIDERS: PCP Family Medicine; Referring Provider Podiatrist; Visit Provider Podiatrist
DX: I73.9 Peripheral vascular disease, unspecified (principal)
CPT/HCPCS: 93924

== ENCOUNTER 2023-03-04 09:10 | Outpatient (CLI) | payer MEDICARE, OTHER, SELFPAY ==
[2023-03-04 10:45] LABS: Hematocrit 46.3 % (37-47); Hemoglobin 15.2 g/dL (12.0-15.0); Mean Corp Hgb Conc 32.8 g/dL (32-36); Mean Corpuscular Hgb 29.5 pg (27.0-32.0); Mean Corpuscular Volume 89.7 fL (81-99); Mean Platelet Vol. 11.6 fl (6.2-12.0); Platelet Count 232 K/mm3 (150-450); RBC Distribution Width SD 46.3 fl (35.1-43.9); Red Blood Count 5.16 M/mm3 (4.2-5.4); White Blood Count 8.9 K/mm3 (4.4-11.0)
[2023-03-04 11:09] LABS: Vitamin B12 433 pg/mL (211-911); Vitamin D,25 Hydroxy 29.7 ng/mL
[2023-03-04 11:21] LABS: ALB/GLOB Ratio 0.8 RATIO (0.9-2.4); AST(SGOT) 19 U/L (15-37); Alanine Aminotransfer ALT/SGPT 25 U/L (13-56); Albumin, Serum 3.3 g/dL (3.2-5.0); Alkaline Phosphatase 162 U/L (45-117); Anion Gap 4 (5-15); BUN 25 mg/dL (7-18); BUN/Creat Ratio 33.8 RATIO (10-20); Chloride 109 mmol/L (98-107); Cholesterol 171 mg/dL (200); Creatinine, Serum 0.74 mg/dL (0.55-1.02); EST Glomerular Filtration Rate 80 mL/min (>60); Est Glom Filt Rate - Afr Amer 97 mL/min (>60); Globulin 4.3 g/dL (2.2-4.2); Glucose 119 mg/dL (74-106); High Density Lipoprotein 43 mg/dL; Iron 100 ug/dL (50-170); Potassium 3.8 mmol/L (3.5-5.1); Protein, Total 7.6 g/dL (6.4-8.2); Sodium Level 140 mmol/L (136-145); Thyroid Stim Hormone (TSH) 1.33 uIU/mL (0.358-3.74); Triglycerides 230 mg/dL; Very Low Density Lipoprotein 46 mg/dL (5-40)
[2023-03-04 11:30] LABS: Microalbumin,Random Urine 11.9 mg/L (NO RANGE EST.)
== END 2023-03-04 23:59 | disposition home or self-care (01) ==
LOC: LAB 09:12
PROVIDERS: PCP Family Medicine; Referring Provider Family Medicine; Visit Provider Family Medicine
DX: R06.00 Dyspnea, unspecified (principal); R06.89 Other abnormalities of breathing; E53.8 Deficiency of other specified B group vitamins; E55.9 Vitamin D deficiency, unspecified; R73.01 Impaired fasting glucose; E78.00 Pure hypercholesterolemia, unspecified
CPT/HCPCS: 36415; 80053; 80061; 82043; 82306; 82607; 83540; 84443; 85027

== ENCOUNTER → 2023-08-10 | Outpatient (CLI) | payer MEDICARE, OTHER, SELFPAY ==
--- NOTE | 2023-08-10 14:34 | RAD_ITS ---
INDICATION: LUMBAGO WITH SCIATICA RIGHT SIDE EXAMINATION/TECHNIQUE: X-RAY - XR Spine Lumbar Comp W/ Bending Min 6 Views COMPARISON: No relevant prior comparison study available FINDINGS: VERTEBRAE: Preserved vertebral body height. No fracture. No definite spondylolisthesis. The alignment is unchanged on the flexion and extension views. Exaggerated lordosis of the lumbar spine. Minimal dextroscoliosis. No significant facet arthropathy. DISCS: Mild disc space narrowing of the lower thoracic discs and of T12-L1. Mild endplate spondylosis. INCLUDED ABDOMEN: Included bowel gas pattern is non-obstructive. RAD/L/S Spine w Bend Min 6 Vw IMPRESSION: Degenerative changes as described above. Electronically Signed: Dawit Bauer MD at 16:22 EDT ,
== END | disposition home or self-care (01) ==
LOC: MTRAD 14:32
PROVIDERS: PCP Family Medicine; Referring Provider Family Medicine; Visit Provider Family Medicine
DX: M54.41 Lumbago with sciatica, right side (principal)
CPT/HCPCS: 72114

== ENCOUNTER → 2023-08-20 | Outpatient (CLI) | payer MEDICARE, OTHER, SELFPAY ==
--- NOTE | 2023-08-20 16:02 | BI_ITS ---
MAMMOGRAPHY - BILATERAL SCREENING REASON FOR EXAM: Female, 83 years old. Routine annual screening examination. PERTINENT HISTORY: Mother with breast cancer. Remote right excisional breast biopsy. TECHNIQUE: Digital bilateral breast cesar (3D mammographic acquisition) in the CC and MLO projections. 2-D mediolateral oblique (MLO) and craniocaudad (CC) views of both breasts were obtained. CAD: Full Field Digital Mammography with Computer Added Detection was performed. COMPARISON: Comparison is made with prior study dated February 27, 2022 and January 23, 2021. FINDINGS: Breast Composition: There are scattered areas of fibroglandular density. There are no dominant masses or suspicious calcifications. No other significant abnormalities are identified. There has been no significant change since the prior study. BI/SCRN MAMM (CAD)W/CESAR BILAT IMPRESSION: Stable bilateral screening mammogram. Yearly follow-up mammogram recommended. (A) ASSESSMENT CATEGORY: BIRADS Category 1: Negative. A letter regarding these results will be sent to the patient by the facility within 30 days. Approximately 10% of breast cancers are not detected by mammography. A normal mammogram should not delay biopsy of a clinically suspicious abnormality. [id number] Electronically Signed: Carlos Ocasio MD at 8:44 EDT ,
== END | disposition home or self-care (01) ==
LOC: OPBI 16:01
PROVIDERS: PCP Family Medicine; Referring Provider Family Medicine; Visit Provider Family Medicine
DX: Z12.31 Encounter for screening mammogram for malignant neoplasm of breast (principal)
CPT/HCPCS: 77063; 77067

== ENCOUNTER 2023-09-23 13:30 | Outpatient (RCR) | payer MEDICARE, OTHER, SELFPAY ==
--- NOTE | 2023-08-27 13:53 | HP.PTEVAL_ITS ---
Patient's Visit Information Visit Information Visit Information: ADALGISA UPTON is a 83 year old F referred to Physical Therapy by Dr. Glen Farah MD with a diagnosis of DDD. Date of Evaluation: 08/27/23 Physical Therapist: Tomas West, DPT, OCS, CSCS Visit Plan Frequency: 2x /Week Duration: 4-6 Weeks Plan: f/u with EG for numbness check and pt to consider 2x/week x2-4 for general exeercises, core NS strengthening and monitor flexion bias exercises. Do core and hip strength next session then general. Subjective Subjective: Lost 3 yrs ago. She is not sure why she is here. April 11 started pain down in genitals. On Apr 17 saw Donald and diagnosed with shingles and has had numb R lateral leg. Constant. No previous numbness. Was treated for shingles and pain cleared up but numbness continued. Saw Dr. villanueva who gave her lots of vitamins for nerves but got sick and dizzy. Pt thinks shingles caused numbness and thinks after x ray that DDD is causing it. Numbness does not effect activities but she cannot feel foot like she is supposed to so she may misstep quickly. No falls. No cane or walker. No diz zyness. Sleep is not great but not due to this but numbness might be better in am but not gone. Walks in bare feet at home to feel floor better. No regular exercises but used ROM machine for leg. Basic ADLs are good including dressing, bathroom, shower and steps and they are no problem. Hobbies: cross stitch adn she can do that. Took care of for two months with this numbness and numbness is improving. No pain Objective Objective: Walks into PT I without AD safe and slightly hesitant. Trasnfers without UE I bed and chair. Steps with one rail reciprocal and I, fells odd descending with R due to numbness. diminished sensation R lateral foot and leg to gross light touch. reflexes 2/3 patella and achilles B. strength is 3+ in core and hip abd, ext rotations B, 4- knee ext and flexion, 4 in ankles movements without myotomal problems. coordination to reciprocal toe tap shows mild deficits, heel tos hin is good. LE aROM WFL. UE AROM WFL. R SLS 3 seconds and L 5-6. LB AROM ext is mod limtied an d no pain, flexion is min limited and no pain, SB in min deficits Balance/Special Test Scores Functional Gait Assessment Score: 25 % Disability: 16.6700 CATSIB Score (Max score 120 seconds): 100 Oswestry Low Back Score: 0 Goals Goal 1:: I appropriate HEP to limit future porblems with balance, numbness if possible. Goal Time Frame: 4-6 Weeks Goal 2:: Numbness R lat leg improved subjectively by 75% Goal Time Frame: 2-4 Weeks Goal 3:: 27/30 FGA and 5 sec R SLS to show imprved wt shift and balance R LE. Goal Time Frame: 2-4 Weeks Goal 4:: Pt feel balance and confidence R LE 50% better Goal Time Frame: 4-6 Weeks Rehabilitation Potential Physical Therapy Diagnosis: numbness in R LE leading to wt shift and balance confidence problems and lessesned activities Rehabilitation Potential: Questionable Anticipated Interventions Patient/Client Instruction: Educate patient on: Condition and Plan of Care For the Purpose of:: To decrease pain, To improve muscle performance and motor function, To increase tolerance to activity/condition/position, To improve gait and locomotor functions and To assume or resume ADL's Therapeutic Exercise to Include: Strength training, Balance training, Postural training, Flexibilty training, Passive ROM and Active ROM For the Purpose of:: To increase ROM, To improve nutrient delivery to tissue, To increase tolerance to activity/condition/position, To improve ability of physical actions for home/community/work/leisure and To improve gait and locomotor functions Text: Thank you for the opportunity to evaluate your patient. For Medicare and Medicare HMO plans, please review the plan of care and approve it. It will need to be FAXED BACK to us at [phone] for Medicare purposes. For Medicare only, by signing this I certify the plan of care. Please let me know if there are questions or concerns regarding this plan of care. Physician Signature: Date:
--- NOTE | 2023-09-23 14:09 | HP.PTDCSUM ---
Discharge Summary D/C summary: It has been my pleasure to treat ADALGISA UPTON referred by Dr. Glen Farah MD, with the diagnosis of DDD for a total of 4 visit(s). Discharge Date: 09/23/23 Please see the following information for a summary of their discharge status. Subjective Subjective: Off adn on knee soreness due to OA. No change to numbness despite doing exercises faithfully. Can continue to do HEP at home. No f/u scheduled with Sofi. Pain R hip: Pain Intensity (Out of 10): 0 Overall Improvement % Improvement: 0 Objective Objective/Function: SLS 4 seconds each leg. FGA is+1 numbness is unaffected by back movements or activity , just constant subjectively and unchanging. Goals Goal 1:: I appropriate HEP to limit future porblems with balance, numbness if possible. Goal Progress: Goal Met Goal 2:: Numbness R lat leg improved subjectively by 75% Goal Progress: Not Progressing Goal 3:: FGA and 5 sec R SLS to show imprved wt shift and balance R LE. Goal 4:: Pt feel balance and confidence R LE 50% better Goal Progress: Goal Met Plan Plan: d/c D/C Information Discharge Comments: Pt will continue exercises via HEP but they are not helping her numbness which is annoying but not effectibng her life. d/c sentence: If there are questions or concerns regarding this patient's physical therapy, please feel free to call me at [phone]. Thank you for the referral of this patient. Sincerely, Tomas West, DPT, OCS, CSCS Balance/Gait/Functional tests Balance/Special Test Scores Functional Gait Assessment Score: 26 % Disability: 13.3400 CATSIB Score (Max score 120 seconds): 100 Oswestry Low Back Score: 0 Improvement % Improvement: 0
== END 2023-09-23 14:42 | disposition home or self-care (01) ==
LOC: PT 13:30
PROVIDERS: PCP Family Medicine; Referring Provider Family Medicine; Visit Provider Family Medicine
DX: M51.36 Other intervertebral disc degeneration, lumbar region (principal)
CPT/HCPCS: 97110; 97161; 97530

== ENCOUNTER → 2024-04-05 | Outpatient (CLI) | payer MEDICARE, OTHER, SELFPAY | END | disposition home or self-care (01) | LOC: MFPLAB 15:33 | PROVIDERS: PCP Family Medicine; Referring Provider Family Medicine; Visit Provider Family Medicine | DX: Z00.00 Encounter for general adult medical examination without abnormal findings (principal) ==

== ENCOUNTER → 2024-04-07 | Outpatient (CLI) | payer MEDICARE, OTHER, SELFPAY ==
[2024-04-07 15:15] LABS: PTHIN 86.3 pg/mL (18.4-80.1)
[2024-04-07 15:18] LABS: Ionized Calcium Order ORDER TUBE
[2024-04-07 15:20] LABS: Vitamin B12 403 pg/mL (211-911); Vitamin D,25 Hydroxy 9.5 ng/mL
[2024-04-07 15:28] LABS: Anion Gap 6 (5-15); BUN 24 mg/dL (7-18); BUN/Creat Ratio 34.5 RATIO (10-20); Calcium,Total 9.4 mg/dL (8.5-10.1); Chloride 107 mmol/L (98-107); Cholesterol 191 mg/dL (200); EST Glomerular Filtration Rate 86 mL/min (>60); Est Glom Filt Rate - Afr Amer 103 mL/min (>60); Glucose 102 mg/dL (74-106); High Density Lipoprotein 45 mg/dL; Sodium Level 139 mmol/L (136-145); Triglycerides 329 mg/dL; Very Low Density Lipoprotein 66 mg/dL (5-40)
[2024-04-07 15:49] LABS: Ionized Calcium 1.25 mmol/L (1.09-1.30)
== END | disposition home or self-care (01) ==
LOC: LAB 14:12
PROVIDERS: PCP Family Medicine; Referring Provider Family Medicine; Visit Provider Family Medicine
DX: M81.0 Age-related osteoporosis without current pathological fracture (principal); I10 Essential (primary) hypertension; E53.8 Deficiency of other specified B group vitamins
CPT/HCPCS: 36415; 80048; 80061; 82306; 82330; 82607; 83735; 83970; 84100; 84443

== ENCOUNTER → 2025-02-01 | Outpatient (CLI) | payer MEDICARE, OTHER, SELFPAY ==
[2025-02-01 16:08] LABS: Hematocrit 44.0 % (37-47); Hemoglobin 14.6 g/dL (12.0-15.0); Immature Granulocytes Count 0.040 X10^3/uL (0.0-0.0); Mean Corp Hgb Conc 33.2 g/dL (32-36); Mean Corpuscular Volume 86.4 fL (81-99); Mean Platelet Vol. 10.6 fl (6.2-12.0); NRBC Flagged by Analyzer 0 % (0-5); Platelet Count 234 K/mm3 (150-450); RBC Distribution Width CV 14.4 % (11.6-14.6); RBC Distribution Width SD 46.0 fl (35.1-43.9); Red Blood Count 5.09 M/mm3 (4.2-5.4); White Blood Count 10.2 K/mm3 (4.4-11.0)
[2025-02-01 16:48] LABS: AST(SGOT) 20 U/L (<=31); Alanine Aminotransfer ALT/SGPT 16 U/L (<=34); Albumin, Serum 3.8 g/dL (3.4-4.8); Alkaline Phosphatase 166 U/L (35-104); Anion Gap 11 (5-15); BUN 20 mg/dL (4-19); BUN/Creat Ratio 29.8 RATIO (10-20); Calcium,Total 9.4 mg/dL (7.6-11.0); Carbon Dioxide 23.5 mmol/L (21.0-32.0); Chloride 105 mmol/L (98-108); Cholesterol 179 mg/dL (<=200); Globulin 3.6 g/dL (2.2-4.2); Glucose 114 mg/dL (70-99); Hepatitis C Antibody Nonreactive (Nonreactive); Low Density Lipoprotein Calc. 91 mg/dL; Potassium 3.8 mmol/L (3.3-5.1); Triglycerides 228 mg/dL; Very Low Density Lipoprotein 46 mg/dL (5-40); Vitamin D,25 Hydroxy 12.5 ng/mL (30-100); cholesterol:hdl ratio screen 4.20
[2025-02-01 23:45] LABS: Xtra Tube Kwok EXTRA TUBE
== END | disposition home or self-care (01) ==
LOC: POLAB3 15:44
PROVIDERS: PCP Family Medicine Geriatric Medicine; Visit Provider Family Medicine Geriatric Medicine
DX: I10 Essential (primary) hypertension (principal); E03.9 Hypothyroidism, unspecified; Z13.89 Encounter for screening for other disorder; E55.9 Vitamin D deficiency, unspecified; E78.5 Hyperlipidemia, unspecified
CPT/HCPCS: 36415; 80053; 80061; 82306; 84443; 85025; 86803